=== PATIENT | male | born 1960 | race Caucasian/White ===

== ENCOUNTER 2016-08-12 01:08 | Emergency (ER) | payer OTHER ==
[~2016-08-12] VITALS: Ht 185.4 cm; Wt 105.9 kg
[~2016-08-12 01:08] MED LIST: ADDERALL 30 MG PO; ADDERALL XR 3030 MG PO; AMLODIPINE BESYL5 MG PO; ASPIR-LOW81 MG PO; AUGMENTIN875 MG PO; Adderall XR PO; Augmentin PO; BACTRIM,SEPT1 TABLET PO; CHANTIX1 MG PO; CLEOCIN300 MG PO; CLINDAMYCIN HC150 MG PO; CLINDAMYCIN HC300 MG PO; Cipro PO; DAILY VALUE1 EACH PO; HYDROCODON-ACE1 EAC7 PO; IBUPROFEN800 MG PO; KEFLEX500 MG PO; LORTAB 5-325 M1 EACH PO; LYRICA75 MG PO; METHADONE10 MG PO; MOTRIN800 MG PO; NAPROSYN500 MG PO; NORCO 5/3251 TABLET PO; Norvasc PO; OMEPRAZOLE40 M1 PO; OXYCONTIN80 MG PO; Opana ER PO; OxyCODONE PO; PEN-VEE K,VEET500 MG PO; PERCOCET 5/31 TABLET PO; PROAIR HFA8.5 GM IH; PROMETHAZINE HC25 M1 PO; Percocet 5/325,Endoc PO; QVAR 80 MCG IN7.3 GM IH; ROXICODONE30 MG PO; SERTRALINE HCL100 MG PO; SILVADENE20 GM TP; Soma PO; TESTOSTERO200 MG/12 IM; ULTRAM50 MG PO; VICODIN 5-3001 EACH PO; XANAX2 MG PO; Zoloft PO
[2016-08-12 03:11] LABS: HEMATOCRIT 40.2 % (38.0-50.0); MCH 30.2 PG (29.0-34.0); MCHC 33.8 G/DL (30.0-36.0); MCV 89.1 FL (86-99); MEAN PLAT.VOLUME 9.6 uM^3 (9.0-12.4); PLATELET COUNT 325 K/uL (156-360); RBC DIS.WIDTH-CV 12.9 % (11.8-14.6); RBC DIS.WIDTH-SD 42.5 % (39-53); RED BLOOD COUNT 4.51 M/uL (4.00-5.50); WHITE BLOOD COUNT 10.9 K/uL (4.1-10.2)
[2016-08-12 03:21] LABS: D-DIMER ELISA 0.29 mg/L FEU (< 0.57)
[2016-08-12 03:22] LABS: CHLORIDE 106 mEq/L (99-109); POTASSIUM 4.4 mEq/L (3.7-5.4); SODIUM 139 mEq/L (136-147)
[2016-08-12 03:24] LABS: GLUCOSE 106 mg/dL (70-99)
[2016-08-12 03:25] LABS: ANION GAP 13 MEQ/L (2-14)
[2016-08-12 03:28] LABS: GFR ESTIMATE (CALCULATED) > 59 mL/min/
[2016-08-12 03:29] LABS: UREA NITROGEN (BUN) 33 mg/dL (9-23)
[2016-08-12] MEDS ORDERED: NAPROXEN500 MG PO (03:29)
[2016-08-12] MEDS ORDERED: LEVAQUIN500 MG PO (03:29)
[2016-08-12] MEDS ORDERED: NORCO 5/3251 TABLET PO (03:29)
[2016-08-12 03:33] LABS: TROP-I INTERPRETATION NEGATIVE; TROPONIN-I < 0.01 ng/mL (0.0-0.30)
[2016-08-12 03:38] VITALS: BP 124/82
== END 2016-08-12 03:39 | disposition home or self-care (01) ==
LOC: EME 01:08
PROVIDERS: Physician Assistant
DX: M54.89 Other dorsalgia (principal); I10 Essential (primary) hypertension; F17.200 Nicotine dependence, unspecified, uncomplicated
CPT/HCPCS: 71020; 80048; 84484; 85027; 85379; 93005; J8540

== ENCOUNTER 2016-11-13 23:15 | Emergency (ER) | payer OTHER ==
[~2016-11-13] VITALS: Ht 185.4 cm; Wt 102.2 kg
[~2016-11-13 23:15] MED LIST changes: +LEVAQUIN500 MG PO; +NAPROXEN500 MG PO
[2016-11-14 00:50] LABS: HEMATOCRIT 41.8 % (38.0-50.0); MCHC 33.5 G/DL (30.0-36.0); MCV 89.5 FL (86-99); MEAN PLAT.VOLUME 9.5 uM^3 (9.0-12.4); PLATELET COUNT 330 K/uL (156-360); RBC DIS.WIDTH-CV 13.2 % (11.8-14.6); RBC DIS.WIDTH-SD 43.1 % (39-53); RED BLOOD COUNT 4.67 M/uL (4.00-5.50)
[2016-11-14 01:00] LABS: CHLORIDE 106 mEq/L (99-109); POTASSIUM 3.5 mEq/L (3.7-5.4); SODIUM 139 mEq/L (136-147)
[2016-11-14 01:02] LABS: GLUCOSE 125 mg/dL (70-99)
[2016-11-14 01:04] LABS: ANION GAP 11 MEQ/L (2-14); TOTAL BILIRUBIN 0.2 mg/dL (0.0-1.0)
[2016-11-14 01:06] LABS: ALKALINE PHOSPHATASE 61 IU/L (3-129); GFR ESTIMATE (CALCULATED) > 59 mL/min/
[2016-11-14 01:07] LABS: UREA NITROGEN (BUN) 23 mg/dL (9-23)
[2016-11-14 01:29] LABS: ADD MIUA? NO; BILIRUBIN NEGATIVE; BLOOD NEGATIVE; COLOR YELLOW ((YELLOW)); GLUCOSE (STRIP) NEGATIVE; KETONES NEGATIVE; LEUKOCYTES NEGATIVE; NITRITE NEGATIVE; PROTEIN (STRIP) NEGATIVE; SPECIFIC GRAVITY 1.021 (1.000-1.030); UCUL ADDED? NO; UROBILINOGEN 0.2 MG/DL (0.2-1.0)
[2016-11-14] MEDS ORDERED: NAPROSYN500 MG PO (02:23)
[2016-11-14] MEDS ORDERED: CIPRO500 MG PO (02:23)
[2016-11-14] MEDS ORDERED: SKELAXIN800 MG PO (02:23)
[2016-11-14 02:39] VITALS: BP 126/76
== END 2016-11-14 02:40 | disposition home or self-care (01) ==
LOC: EXP 23:15 → EME 23:15 → EXP 11-14 02:40
PROVIDERS: Physician Assistant
DX: S30.1XXA Contusion of abdominal wall, initial encounter (principal); S16.1XXA Strain of muscle, fascia and tendon at neck level, initial encounter; V49.40XA Driver injured in collision with unspecified motor vehicles in traffic accident, initial encounter; K57.92 Diverticulitis of intestine, part unspecified, without perforation or abscess without bleeding; F17.200 Nicotine dependence, unspecified, uncomplicated
CPT/HCPCS: 71020; 72050; 74177; 80053; 81003; 85027; 99281; 99285; J1200; J2930; J7030